=== PATIENT | male | born 1990 | race Caucasian/White ===

== ENCOUNTER → 2018-08-11 10:38 | Outpatient (CLI) | payer OTHER, SELFPAY ==
--- NOTE | 2018-08-11 10:49 | RAD_ITS ---
STUDY: X-RAY - ABDOMEN/PELVIS REASON FOR EXAM: Male, 27 years old. Mid February kidney stones. TECHNIQUE: 2 AP images of the abdomen. COMPARISON: None. FINDINGS: Normal visualized lung bases. There is an unremarkable bowel gas pattern. There is no demonstrated free abdominal air. The visualized liver, spleen and kidneys are grossly normal in size and morphology. There are calcified phleboliths in the pelvis. Normal visualized osseous structures. RAD/Abdomen Single View IMPRESSION: No radiopaque renal calculi identified. Electronically Signed: Raya Ramirez MD at 8:20 EDT Tel , Service support ,
== END ==
PROVIDERS: Family Provider Internal Medicine; PCP Internal Medicine; Referring Provider Nurse Practitioner Adult Health; Visit Provider Nurse Practitioner Adult Health
DX: N20.0 Calculus of kidney (principal)
CPT/HCPCS: 74018

== ENCOUNTER → 2024-07-26 | Outpatient (CLI) | payer OTHER, SELFPAY ==
--- NOTE | 2024-07-26 14:00 | RAD_ITS ---
PROCEDURE: ABDOMEN SINGLE VIEW REASON FOR EXAM: Kidney stone. Reported left-sided pain. TECHNIQUE: Single view abdomen. COMPARISON: 08/11/2018; only the images are available, the report is not available at the time of dictation. FINDINGS: Note that the upper abdomen is excluded from the [id number]. No visible bowel dilatation. Similar left pelvic calculi up to 4 mm, presumably reflecting vascular phleboliths given stability. No visible acute bony abnormality. RAD/Abdomen Single View IMPRESSION: 1. Similar left pelvic calculi up to 4 mm, presumably reflecting vascular phleb oliths given stability. If there is persistent concern, consider CT. 2. Additional description as above. Reading Location: [facility]
== END | disposition home or self-care (01) ==
LOC: RAD 13:48
PROVIDERS: PCP Internal Medicine; Referring Provider Urology; Visit Provider Urology
DX: N20.1 Calculus of ureter (principal)
CPT/HCPCS: 74018

== ENCOUNTER 2024-07-28 09:49 | Day surgery (SDC) | payer OTHER, SELFPAY ==
[2024-07-28] VITALS (9 sets, daily range): BP systolic 135–153; BP diastolic 84–103; PULSE 55–66; RESP 14–16; TEMP 36.4–37.1; O2SAT 93–100; BMI 35.9
[2024-07-28] MEDS: 0.9% Normal Saline (1000mL) 1,000 ML 15 ML IV (10:22)
--- NOTE | 2024-07-28 10:32 | PRE.ANES_ITS ---
ASA Classification* ASA Classification ASA Classification: 2 Assessment & Plan Anesthesia* Anesthesia Assessment Anesthesia Assessment: Discussed sedation and/or anesthesia options, risks, benefits, and alternatives with patient/parents/legal guardian/POA. Questions invited. The patient/parents/legal guardian/POA seems to understand and agrees to proceed with anesthesia plan. Reviewed the physical assessment, medical history, allergy history and patient home medications list prior to surgery/procedure/anesthetic and documented any changes. Performed airway and anesthesia risk assessments. 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 When Was Last Pacemaker Check QUESTION #4 FULL TEXT: You/Your Family Experience fever (hyperthermia) with Anesthesia Last Oral Intake Last Oral intake: Last Oral Intake NPO since 23:30 07/28/24 10:13 Meds taken in AM with sips of water? Meds patient instructed to take am of surgery PONV PONV - statistics professor: PONV - statistics professor Female No 07/27/24 11:26 HX of Motion Sickness Yes 07/27/24 11:26 HX of N/V After Surgery No 07/27/24 11:26 Non-Smoker Yes 07/27/24 11:26 Duration of Surgery greater Yes 07/27/24 11:26 than 60 minutes Number of Risk Factors 3 07/27/24 11:26 PONV Score Moderate Risk 07/27/24 11:26 Height & Weight Height & Weight: Anesthesia: Height & Weight Height 5 ft 8 in 07/28/24 10:13 Weight: 107 kg 07/28/24 10:13 Body Mass Index (BMI) 35.9 07/28/24 10:13 Respiratory Assessment Respiratory Assessment - statistics professor: Respiratory Tract Infection Hx - statistics professor Hx Respiratory Tract Infection No 07/27/24 11:26 STOP Sleep Apnea STOP Sleep Apnea - statistics professor: STOP Sleep Apnea - statistics professor Hx Hypertension No 07/27/24 11:26 Hx Sleep Apnea No 07/27/24 11:26 CPAP BIPAP Do you snore loudly (louder Yes 07/27/24 11:26 than talking or can be heard Do you often feel tired/ No 07/27/24 11:26 fatigued/ sleepy during daytime? Has anyone observed you stop No 07/27/24 11:26 breathing during sleep? STOP Results Negative 07/27/24 11:26 QUESTION #5 FULL TEXT : Do you snore loudly (louder than talking or can be heard through closed doors)? Tobacco Use History Tobacco Use History - statistics professor: Tobacco Use History - statistics professor Tobacco Use Smoking Status Never smoker 07/27/24 11:26 Hx Tobacco Use No 07/27/24 11:26 Years Smoking Packs Smoked per Day Smoking Cessation Date was within the last 15 years Hx Smoking Cessation Date Hx Smoking Cessation Counseling Hematologic Medial History Hematologic Hx - statistics professor: Hematologic Medical Hx - smoke jumper Hx of Blood Transfusion No 07/27/24 11:26 Hx of Transfusion in last 3 No 07/27/24 11:26 Months Date of Last Transfusion (if within last 3 months) Ever experience any problems No 07/27/24 11:26 with transfusion(s)? Specify any problems Hx of Preganancy in last 3 N/A 07/27/24 11:26 Months Nurse Filling Out Transfusion MGRIFFITH 07/27/24 11:26 & Questions: Date: 07/27/24 07/27/24 11:26 Time: 11:28 07/27/24 11:26 Patient unable to answer at this time (ie. confused, unrespo /Reproduction History /Reproductive History - statistics professor: /Reproductive Hx- statistics professor Hx Now Gestational Age (in weeks): EDC: Hx Hx Para Hx Section SAB Active Medications Active Medications: Current Medications Generic Name Dose Route Start Last Admin Trade Name Freq PRN Reason Stop Dose Admin Cefazolin Sodium 2 gm/ N/A 20 mls @ 400 mls/hr 07/28/24 12:00 IV 07/28/24 12:02 PREOP ONE Sodium Chloride 1,000 mls @ 15 mls/hr 07/28/24 10:00 07/28/24 10:22 IV 08/02/24 23:19 15 mls/hr .Q48H LAKE Administration Protocol [facility] Medical History Alcohol use High cholesterol Dietary restriction Non-smoker Home Medications ?Medication ?Instructions ?Recorded ?Last Taken ?Type acetaminophen 500 mg capsule 500 mg PO Q6H PRN pain 07/27/24 History ibuprofen 200 mg capsule 200 mg PO Q8H PRN pain 07/2707/27/24 History ondansetron HCl 4 mg tablet 4 mg PO Q6H PRN PRN nausea /vomiting 07/27/24 07/27/24 History oxycodone-acetaminophen 5 mg-325 2 tab PO Q4H PRN PRN pain 07/27/24 07/27/24 History mg tablet Allergy/AdvReac Type Severity Reaction Status Date / Time No Known Allergies Allergy Verified 07/28/24 10:11 Surgical History History of tonsillectomy and adenoidectomy Social History Smoking Status: Never smoker Review of Systems (Anesthesia) ROS Narrative System reviewed and no additional complaints, except as documented.
--- NOTE | 2024-07-28 12:29 | PCM.HP.STD ---
HPI - General General Date of Service: 07/28/24 Chief Complaint: Kidney stone HPI Narrative VENKAT FARRIS, is a 33 M who presents for treatment of a left kidney stone with shockwave lithotripsy. PFSH Medical History Alcohol use High cholesterol Dietary restriction Non-smoker Home Medications ?Medication ?Instructions ?Recorded ?Last Taken ?Type acetaminophen 500 mg capsule 500 mg PO Q6H PRN pain 07/27/24 07/27/24 History ibuprofen 200 mg capsule 200 mg PO Q8H PRN pain 07/27/24 07/27/24 History ondansetron HCl 4 mg tablet 4 mg PO Q6H PRN PRN nausea/vomiting 07/27/24 07/27/24 History oxycodone-acetaminophen 5 mg-325 2 tab PO Q4H PRN PRN pain 07/27/24 07/27/24 History mg tablet Allergy/AdvReac Type Severity Reaction Status Date / Time No Known Allergies Allergy Verified 07/28/24 10:11 Surgical History History of tonsillectomy and adenoidectomy Social History Smoking Status: Never smoker Vital Signs Vital Signs Vital Signs: 07/28/24 10:13 07/28/24 10:13 07/28/24 10:33 Temperature 98.0 F 98.0 F Temperature Source Temporal Pulse Rate 55 L 55 L Respiratory Rate 16 16 Respiratory Pattern Normal Blood Pressure 140/100 H 140/100 H Blood Pressure Mean 113 Blood Pressure Source Monitor Blood Pressure Position Semi-Fowlers Blood Pressure Location Left Arm Pulse Ox 100 100 Oxygen Delivery Method Room Air Weight Weight: 107 kg Body Mass Index (BMI) 35.9
[2024-07-28] MEDS: Cefazolin 2 GM in Syringe IV (13:06)
--- NOTE | 2024-07-28 13:06 | PCM.DC ---
Discharge Instructions Diet Discharge Diet: No restrictions DC O2, CPAP, BIPAP needs Home O2 Discharge instructions: No Dressing / Incision Discharge Activity: Return to Normal Activity and May Not Drive (while taking narcotic pain medications.) Dressing / Incision Call your doctor if you observe: Fever of 101 or Higher Follow Up Care Please Follow Up With: Alok Brock MD When: Call [phone] for an appointment Test Results: Test results from this visit will be discussed in further detail at your follow-up appointment, if applicable. Discharge Plan Admission Primary Reason for Your Visit: eswl Attending Provider: Alok Brock Primary Care Provider: Margarito Connelly Instructions Print Language: Ukrainian Discharge Orders/Prescriptions Prescriptions: New oxycodone 5 mg tablet 5 mg PO Q6H PRN (Reason: pain) 7 Days Qty: 14 0RF Continued ibuprofen 200 mg capsule 200 mg PO Q8H PRN (Reason: pain) acetaminophen 500 mg capsule 500 mg PO Q6H PRN (Reason: pain) oxycodone-acetaminophen 5-325 mg tablet 2 tab PO Q4H PRN PRN (Reason: pain) ondansetron HCl 4 mg tablet 4 mg PO Q6H PRN PRN (Reason: nausea/vomiting) Referrals / Follow Up: Alok Brock MD [Med Staff - Active Staff] - Margarito Connelly MD [Primary Care Provider] - Disposition Disposition (needs filled in before D/C Order can be placed): Home, Self Care
--- NOTE | 2024-07-28 13:06 | PCM.OPRPT ---
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 In the preoperative area and x-ray was done to confirm the location of the stone. The x-ray was reviewed and the stone location was reviewed. In the preoperative setting I spoke with the patient regarding the treatment of the stone how the treatment would be conducted and the expectations after surgery. The patient understands there is a risk of bleeding and infection. Also discussed the very rare risk of hematoma or damage to the kidney. We also discussed the risk that the shockwave machine will fail to break the stone adequately and that the patient may need other surgical procedures. I also discussed the possibility that the patient may need a stent after the procedure. After reviewing the procedure with the patient, the patient is signed the consent form all the patient's questions were addressed and was taken back to the operating room for treatment of a kidney stone. Patient was taken back to the operating room, the patient was identified by the nursing staff, I identified the side of the treatment and the patient side of treatment had been marked by my initials. The patient underwent general anesthetic and was placed supine on the lithotripter table. I then used fluoroscopy to identify the stone on the left proximal ureter, left side. I then positioned the patient under the lithotripter and I used triangulation technique to identify the location of the stone and then I made sure that the stone was engaged in the F2 focal point of F2 Donier lithoprior machine. Once the patient was positioned appropriately and the stone was identified and placed in the F2 focal point of the lithotripter machine I then proceeded with shockwave lithotripsy. In the beginning the shockwave was delivered at a rate of 90 shocks per minute, anesthesia monitored the EKG for any ectopy. The power was slowly increased to 5 kV and subsequently at the 7 kV. I then proceeded with the treatment with shock wave therapy and around during the treatment to make sure the stone stayed in the F2 focal point during the entire treatment and after 4000 shockwaves were delivered to the stone under fluoroscopic guidance the treatment was completed. The patient was given instructions to call the office to make an a follow-up appointment with an xray to evaluate the success of the treatment, pateint understands that its possible the stones may need another procedure.At this point the patient's anesthetic was reversed patient was extubated and taken back to the PACU in stable condition. Surgical Findings: stone in proximal Complications Complications: No Admit VTE Documentation VTE Present on Admission: No VTE Mechan Device Prophylaxis: SCD's VTE Pharm Prophylaxis ordered?: No
--- NOTE | 2024-07-28 14:09 | PCM.POST.ANE ---
Anesthesia: Postop Eval I Current Vital Signs Temperature: 98.2 F Pulse Rate: 61 Blood Pressure: 148/101 Respiratory Rate: 14 Pulse Ox: 98 Oxygen Delivery Method: Room Air Assessment Airway patent: Yes Spontaneous unlabored respirations: Yes Mental status: Awake nausea: No Vomiting: No Anesthesia Complication: No Fluid Hydration Crystalloid volume administer (ml): 1,000 Total IV fluid infused: 1,000 Progress Note Anesthesia document: Postop Eval 1 completed: Yes
[2024-07-28] MEDS: Ketorolac 15 MG/ML Vial IV (14:30)
--- NOTE | 2024-07-28 14:30 | POSTOPAN2_ITS ---
Anesthesia Postop Eval I Sum Postop Eval Completion status Anesthesia document: Postop Eval 1 completed: Yes Anesthesia Postop Eval I Summary Anesthesia Postop Eval I Summary: Anesthesia Postop Eval I: Assessment Summary Airway patent Yes 07/28/24 14:10 COLD ROLL [email or web address] Spontaneous unlabored Yes 07/28/24 14:10 COLD ROLL [email or web address] respirations Mental status Awake 07/28/24 14:10 COLD ROLL [email or web address] nausea No 07/28/24 14:10 COLD ROLL [email or web address] Vomiting No 07/28/24 14:10 COLD ROLL [email or web address].[email or web address] Anesthesia Postop Eval I: Fluid Summary Crystalloid volume administer 1,000 07/28/24 14:10 COLD ROLL [email or web address] (ml) Colloids volume administered ( ml) Blood Product volume administered (ml) Total IV fluid infused 1,000 07/28/24 14:10 COLD ROLL [email or web address] Anesthesia Postop Eval I: Summary Notes Anesthesia Complication No 07/28/24 14:10 COLD ROLL [email or web address] Anesthesia Complication Comment: Post-operative progress note Anesthesia: Postop Eval II Evaluation Mental status: Awake Pain Level: 0 nausea: No Vomiting: No
--- NOTE | 2024-07-28 14:30 | PCM.POSTANE2 ---
Anesthesia Postop Eval I Sum Postop Eval Completion status Anesthesia document: Postop Eval 1 completed: Yes Anesthesia Postop Eval I Summary Anesthesia Postop Eval I Summary: Anesthesia Postop Eval I: Assessment Summary Airway patent Yes 07/28/24 14:10 [email or web address] Spontaneous unlabored Yes 07/28/24 14:10 [email or web address] respirations Mental status Awake 07/28/24 14:10 [email or web address] nausea No 07/28/24 14:10 BLUEPRINT [email or web address] Vomiting No 07/28/24 14:10 BLUEPRINT [email or web address] Anesthesia Postop Eval I: Fluid Summary Crystalloid volume administer 1,000 07/28/24 14:10 BLUEPRINT [email or web address] (ml) Colloids volume administered ( ml) Blood Product volume administered (ml) Total IV fluid infused 1,000 07/28/24 14:10 [email or web address] Anesthesia Postop Eval I: Summary Notes Anesthesia Complication No 07/28/24 14:10 [email or web address].[email or web address] Anesthesia Complication Comment: Post-operative progress note Anesthesia: Postop Eval II Evaluation Mental status: Awake Pain Level: 0 nausea: No Vomiting: No
== END 2024-07-28 15:24 | disposition home or self-care (01) ==
LOC: SDC 09:49 → AC 09:50
PROVIDERS: PCP Internal Medicine; Referring Provider Urology; Visit Provider Urology
PROC: (CPT 50590; principal; 2024-07-28 11:50)
DX: N20.1 Calculus of ureter (principal); E78.00 Pure hypercholesterolemia, unspecified
CPT/HCPCS: 50590; J2405

== ENCOUNTER → 2024-08-17 | Outpatient (CLI) | payer OTHER, SELFPAY ==
--- NOTE | 2024-08-17 16:20 | RAD_ITS ---
EXAM: XR Abdomen, 1 View CLINICAL INDICATION: CALCULUS OF KIDNEY TECHNIQUE: Frontal supine view of the abdomen/pelvis. COMPARISON: No relevant prior studies available. FINDINGS: GASTROINTESTINAL TRACT: Constipation. Stool burden limits evaluation for subtle renal calculi. No dilation. BONES/JOINTS: Unremarkable. No acute fracture. RAD/Abdomen Single View IMPRESSION: Constipation. Stool burden limits evaluation for subtle renal calculi. Reading Location: [facility]
[2024-08-17 17:48] LABS: PTHIN 113 pg/mL (11-61)
[2024-08-17 17:51] LABS: Calcium 8.9 mg/dL (7.6-11.0); Phosphorus 2.6 mg/dL (2.7-4.5)
== END | disposition home or self-care (01) ==
LOC: RAD 16:03
PROVIDERS: PCP Internal Medicine; Referring Provider Urology; Visit Provider Urology
DX: N20.0 Calculus of kidney (principal)
CPT/HCPCS: 36415; 74018; 82310; 83735; 83970; 84100

== ENCOUNTER → 2024-08-25 | Outpatient (CLI) | payer OTHER, SELFPAY ==
[2024-08-25 12:16] LABS: Sodium 24 HR UR 212 mmol/24h (40-220); Urine Chloride 140 mmol/L (Not Establ.); Urine Chloride / 24 Hours 209 mmol/24h (110-250); Urine Potassium 36.7 mmol/L (Not Establ.); Urine Sodium 142 mmol/L (Not Establ.)
[2024-08-25 12:38] LABS: 24HR UR TOTAL VOLUME 1500 ml; Calcium Urine pH Range 2
[2024-08-25 12:39] LABS: (24 HR) Urine Calcium 37.5 mg/24 HR (42.0-353.0); Urine Calcium (Random) 2.5 mg/dL (Not Estab.)
[2024-08-26 04:07] LABS: Uric Acid, Ur 41.4 mg/dL (Not Estab.)
== END | disposition home or self-care (01) ==
LOC: LAB.FUTURE 07:11 → LABSPEC 07:12
PROVIDERS: PCP Internal Medicine; Referring Provider Urology; Visit Provider Urology
DX: N20.0 Calculus of kidney (principal)
CPT/HCPCS: 81050; 82340; 82436; 84133; 84300; 84560